=== PATIENT | female | born 1950 | race Caucasian/White ===

== ENCOUNTER 2020-06-13 12:31 | Outpatient (CLI) | payer MEDICARE, OTHER ==
[~2020-06-13 12:31] MED LIST: LIDOCAINE 1%, 10ML ONE
== END 2020-06-13 23:59 | disposition home or self-care (01) ==
LOC: RAD 12:31
PROVIDERS: ATTEND Otolaryngology
DX: R22.1 Localized swelling, mass and lump, neck (principal); K11.8 Other diseases of salivary glands
CPT/HCPCS: 10005; 76942; 88172; 88173; 88177